=== PATIENT | female | born 1950 | race Caucasian/White ===

== ENCOUNTER 2018-08-11 19:57 | Emergency (ER) | payer MEDICARE, MEDICAID ==
[~2018-08-11] VITALS: Ht 154.9 cm; Wt 37.6 kg
--- NOTE | 2018-08-11 20:22 | NUR ---
SHARONDA FRIAS AT BEDSIDE.
--- NOTE | 2018-08-11 20:22 | NUR ---
PT CAME TO EMERGENCY DEPT. BECAUSE PT TRIPPED AND FELL ON SIDEWALK AT 1700/1730. ABRASIONS NOTED ON L EYE, PAIN ON L PINKY W/ MOVEMENT. PT AXO4. RESPIRATIONS EVEN AND UNLABORED. PT AMBULATORY WITH STEADY GAIT.
--- NOTE | 2018-08-11 20:24 | NUR ---
Note undone in EDM - 08/11/18 at 2033 by DIAMOND PT CAME TO EMERGENCY DEPT. BECAUSE PT TRIPPED AND FELL ON SIDEWALK AT 1700/1730. 2 LACERATIONS NOTED ON L EYE, PAIN ON L PINKY W/ MOVEMENT. PT AXO4. RESPIRATIONS EVEN AND UNLABORED. PT AMBULATORY WITH STEADY GAIT.
--- NOTE | 2018-08-11 21:34 | NUR ---
Patient discharged to home in stable condition. Written and verbal after care instructions given. Patient verbalizes understanding of instruction. Pt ambulatory with steady gait.
[2018-08-11 21:35] VITALS: BP 138/89
== END 2018-08-11 21:35 | disposition home or self-care (01) ==
LOC: ER 20:09
DX: S00.83XA Contusion of other part of head, initial encounter (principal); S62.617A Displaced fracture of proximal phalanx of left little finger, initial encounter for closed fracture; F84.0 Autistic disorder; W01.0XXA Fall on same level from slipping, tripping and stumbling without subsequent striking against object, initial encounter; Y93.89 Activity, other specified; Y92.89 Other specified places as the place of occurrence of the external cause; Y99.8 Other external cause status
CPT/HCPCS: 70486-TC; 73140-TC

== ENCOUNTER 2020-08-16 13:48 | Outpatient (CLI) | payer MEDICARE, MEDICAID | END 2020-08-16 23:59 | disposition home or self-care (01) | LOC: RAD 13:48 | PROVIDERS: ATTEND Legal Medicine | DX: J98.4 Other disorders of lung (principal) | CPT/HCPCS: 71046 ==